=== PATIENT | male | born 1965 | race Caucasian/White ===

== ENCOUNTER 2016-09-17 14:26 | Inpatient (IN) | payer OTHER ==
[2016-09-17 17:08] VITALS: BMI 34.1
--- NOTE | 2016-09-17 18:45 | HP ---
CIWA Score - CIWA Score Nausea/Vomitin-Mild Nausea/No Vomiting Muscle Tremors: 5 Anxiety: 4-Mod. Anxious/Guarded Agitation: 4-Moderately Restless Paroxysmal Sweats: 2 Orientation: 3-Disoriented Date>2 days Tacttile Disturbances: 0-None Auditory Disturbances: 0-None Visual Disturbances: 0-None Headache: 2-Mild CIWA-Ar Total Score: 21 Admission ROS BHS - HPI Chief Complaint: [facility] [phone] Allergies/Adverse Reactions: Allergies Allergy/AdvReac Type Severity Reaction Status Date / Time No Known Allergies Allergy Verified 09/17/16 17:16 History of Present Illness: 50 years old male with long history of alcohol dependence, denies medical issue has anxiety is admitted to detox Exam Limitations: No Limitations - Ebola screening Have you traveled outside of the country in the last 21 days: No Have you had contact with anyone from an Ebola affected area: No Have you been sick,other than usual withdrawal symptoms: No Do you have a fever: No - Review of Systems Constitutional: Chills, Changes in sleep, Weight Stable EENT: reports: Other (eye glasses) Respiratory: reports: SOB with Exertion, Productive cough Cardiac: reports: Palpitations GI: reports: Nausea, Poor Fluid Intake, Indigestion, Abdominal cramping : reports: No Symptoms Reported Musculoskeletal: reports: No Symptoms Reported Integumentary: reports: No Symptoms Reported Neuro: reports: Seizure (2014 no treatment), Tremors Endocrine: reports: No Symptoms Reported Hematology: reports: No Symptoms Reported Psychiatric: reports: Judgement Intact, Anxious Other Systems: Reviewed and Negative Patient History - Patient Medical History Hx Anemia: No Hx Asthma: No Hx Chronic Obstructive Pulmonary Disease (COPD): No Hx Cancer: No Hx Cardiac Disorders: No Hx Congestive Heart Failure: No Hx Hypertension: No Hx Hypercholesterolemia: No Hx Pacemaker: No HX Cerebrovascular Accident: No Hx Seizures: Yes (LAST 3 DAYS AGO) Hx Dementia: No Hx Diabetes: No Hx Gastrointestinal Disorders: No Hx Liver Disease: No Hx Genitourinary Disorders: No Hx Sexually Transmitted Disorders: No Hx Renal Disease (ESRD): No Hx Thyroid Disease: No Hx Human Immunodeficiency Virus (HIV): No Hx Hepatitis C: No Hx Depression: No Hx Suicide Attempt: No Hx Bipolar Disorder: No Hx Schizophrenia: Yes - Patient Surgical History Past Surgical History: Yes Hx Neurologic Surgery: No Hx Cataract Extraction: No Hx Cardiac Surgery: No Hx Lung Surgery: No Hx Breast Surgery: No Hx Breast Biopsy: No Hx Abdominal Surgery: No Hx Appendectomy: Yes (20 YEARS AGO) Hx Cholecystectomy: No Hx Genitourinary Surgery: No Hx Orthopedic Surgery: No Anesthesia Reaction: No - PPD History Previous Implant?: Yes Documented Results: Negative w/proof Implanted On Prior [facility] Admission?: Yes Date: 10/23/15 PPD to be Administered?: No - Smoking Cessation Smoking history: Never smoked Have you smoked in the past 12 months: No Hx Chewing Tobacco Use: No Initiated information on smoking cessation: No - Substance & Tx. History Hx Alcohol Use: Yes Hx Substance Use: Yes Substance Use Type: Alcohol, Tranquilizers Hx Substance Use Treatment: Yes - Substances Abused Alcohol Route: Oral Frequency: Daily Amount used: LIQUOR- 3 PINTS, BEER- 3 SIX PACKS Age of first use: 16 Date of Last Use: 09/17/16 Benzodiazepine (Klonopin) Route: Oral Frequency: 3-6 times per week Amount used: 2 mg Age of first use: 49 Date of Last Use: 09/15/16 Family Disease History - Family Disease History Family Disease History: Heart Disease: Father, Mother Admission Physical Exam BHS - Vital Signs Vital Signs: Vital Signs - 24 hr 09/17/16 17:05 Temperature 97.4 F L Pulse Rate 111 H Respiratory 20 Rate Blood Pressure 144/86 - Physical General Appearance: Yes: Appropriately Dressed, Mild Distress, Alcohol on Breath , Obese, Tremorous, Irritable, Sweating, Anxious HEENTM: Yes: Hearing grossly Normal, Normal ENT Inspection, Normocephalic, Normal Voice Respiratory: Yes: Chest Non-Tender, Lungs Clear, Normal Breath Sounds, No Respiratory Distress, No Accessory Muscle Use Neck: Yes: Supple, Trachea in good position Breast: Yes: Breasts Symetrical Cardiology: Yes: Regular Rhythm, Regular Rate, S1, S2 Abdominal: Yes: Non Tender, Soft Genitourinary: Yes: Within Normal Limits Back: Yes: Normal Inspection Musculoskeletal: Yes: full range of Motion, Gait Steady Extremities: Yes: Normal Inspection, Normal Range of Motion, Non-Tender, Tremors Neurological: Yes: Alert, Motor Strength 5/5, Normal Response, Depressed Affect Integumentary: Yes: Warm, Moist Lymphatic: Yes: Within Normal Limits - Diagnostic (1) Alcohol dependence with uncomplicated withdrawal Current Visit: Yes Status: Acute (2) Hypertension Current Visit: Yes Status: Acute Qualifiers: Hypertension type: essential hypertension Qualified Code(s): I10 - Essential (primary) hypertension Comment: ALCOHOL WITHDRAWAL RELATED HYPERTENSION (3) Schizophrenia Current Visit: Yes Status: Suspected Qualifiers: Schizophrenia type: disorganized schizophrenia Qualified Code(s): F20.1 - Disorganized schizophrenia (4) GERD (gastroesophageal reflux disease) Current Visit: Yes Status: Acute Qualifiers: Esophagitis presence: without esophagitis Qualified Code(s): K21.9 - Gastro-esophageal reflux disease without esophagitis (5) Seizure disorder Current Visit: Yes Status: Chronic Comment: alcohol withdrawal related seizure no treatment Cleared for Admission S - Detox or Rehab [facility] Level of Care: Medically Managed Detox Regimen/Protocol: Librium [facility] Breath Alcohol Content Breath Alcohol Content: 0.264 Urine Drug Screen - Results Drug Screen Negative: No Urine Drug Screen Results: BZO-Benzodiazepines, TCA-Tricyclic Antidepress
[2016-09-17] MEDS ORDERED: chlordiazePOXIDE HCL 25 MG CAPSULE PO ONE (19:02)
[2016-09-17] MEDS ORDERED: MENTHOL/PHENOL 1 EACH UD MM PRN (19:02)
[2016-09-17] MEDS ORDERED: MAGNESIUM CITRATE 300 ML BOTTLE PO PRN (19:02)
[2016-09-17] MEDS ORDERED: diphenhydrAMINE HCL 50 MG CAPSULE PO PRN (19:02)
[2016-09-17] MEDS ORDERED: guaiFENesin/D-METHORPHAN HB 10 ML UNIT-DOSE CUPS PO PRN (19:02)
[2016-09-17] MEDS ORDERED: ACETAMINOPHEN 325 MG TABLET (FP) PO PRN (19:02)
[2016-09-17] MEDS ORDERED: MAG HYDROX/AL HYDROX/SIMETH 30 ML UNIT-DOSE CUP PO PRN (19:02)
[2016-09-17] MEDS ORDERED: hydrOXYzine PAMOATE 50 MG CAPSULE (FP) PO PRN (19:02)
[2016-09-17] MEDS ORDERED: MAGNESIUM HYDROX 2400MG/30ML ORAL SUSPENSION 30 ML CUP PO PRN (19:02)
[2016-09-17] MEDS ORDERED: LOPERAMIDE HCL 2 MG CAPSULE PO PRN (19:02)
[2016-09-17] MEDS ORDERED: P-EPHED 60MG/TRIPROLIDI 2.5MG TABLET PO PRN (19:02)
[2016-09-17] MEDS ORDERED: ONDANSETRON *ODT* 4 MG TABLET SL PRN (19:04)
[2016-09-17] MEDS ORDERED: cloNIDine HCL 0.1 MG TABLET PO PRN (19:05)
[2016-09-17 20:40] LABS: URINE APPEARANCE CLEAR; URINE BILIRUBIN NEGATIVE (NEGATIVE); URINE BLOOD NEGATIVE (NEGATIVE); URINE COLOR COLORLESS; URINE GLUCOSE (UA) NEGATIVE (NEGATIVE); URINE KETONE NEGATIVE (NEGATIVE); URINE LEUK ESTERASE NEGATIVE (NEGATIVE); URINE NITRITE NEGATIVE (NEGATIVE); URINE PROTEIN NEGATIVE (NEGATIVE); URINE UROBILINOGEN NEGATIVE E.U./dl (0.2-1.0)
[2016-09-17] MEDS ORDERED: THIAMINE HCL 100 MG TABLET (FP) PO SCH (22:00)
[2016-09-17] MEDS ORDERED: RANITIDINE HCL 150 MG TABLET (FP) PO SCH (22:00)
[2016-09-17] MEDS: chlordiazePOXIDE HCL 25 MG CAPSULE PO SCH (23:04)
[2016-09-18] MEDS: chlordiazePOXIDE HCL 25 MG CAPSULE PO PRN ×2 (01:58→06:56)
[2016-09-18] MEDS: chlordiazePOXIDE HCL 25 MG CAPSULE PO SCH (04:56)
[2016-09-18] MEDS ORDERED: chlordiazePOXIDE HCL 25 MG CAPSULE PO ONE (08:26)
[2016-09-18 09:19] LABS: ALBUMIN 3.6 g/dl (3.4-5.0); ANION GAP 12 (8-16); CO2 27 mmol/L (21-32); GLUCOSE,RANDOM 92 mg/dL (74-106)
[2016-09-18 09:23] LABS: ALK PHOS 102 U/L (45-117); BILIRUBIN,TOTAL 0.5 mg/dL (0.2-1.0); CREATININE 0.8 mg/dL (0.7-1.3); SGOT/AST 35 U/L (15-37); SGPT/ALT 34 U/L (12-78); TOT PROT 7.6 g/dl (6.4-8.2)
[2016-09-18 09:24] LABS: MCH 31.9 pg (25.7-33.7); MCHC 33.9 g/dl (32.0-35.9); MEAN PLT VOLUME 6.9 fl (7.5-11.1); PLATELET COUNT 324 K/MM3 (134-434); RDW 13.3 % (11.9-15.9); WHITE BLOOD COUNT 7.3 K/mm3 (4.0-10.0)
--- NOTE | 2016-09-18 09:42 | PN ---
S CIWA - CIWA Score Nausea/Vomitin Muscle Tremors: 3 Anxiety: 2 Agitation: 3 Paroxysmal Sweats: 1-Minimal Palms Moist Orientation: 0-Oriented Tacttile Disturbances: 1-Very Mild Itch/Numbness Auditory Disturbances: 1-Very Mild Visual Disturbances: 1-Very Mild Sensitivity Headache: 2-Mild CIWA-Ar Total Score: 17 BHS Progress Note (SOAP) Subjective: ALERT,IRRITABLE,ANXIOUS,INTERRUPTED SLEEP,TREMOR Objective: 09/18/16 09:40 Vital Signs Temperature 98.2 F 09/18/16 06:00 Pulse Rate 96 H 09/18/16 06:30 Respiratory Rate 18 09/18/16 06:30 Blood Pressure 132/80 09/18/16 06:00 O2 Sat by Pulse Oximetry (%) 09/18/16 09:41 EKG SINUS TACHYCARDIA 09/18/16 09:42 Laboratory Last Values WBC 7.3 K/mm3 (4.0-10.0) D 09/18/16 07:45 RBC 4.51 M/mm3 (4.00-5.60) 09/18/16 07:45 Hgb 14.4 GM/dL (11.7-16.9) 09/18/16 07:45 Hct 42.4 % (35.4-49) 09/18/16 07:45 MCV 94.0 fl (80-96) 09/18/16 07:45 MCHC 33.9 g/dl (32.0-35.9) 09/18/16 07:45 RDW 13.3 % (11.9-15.9) 09/18/16 07:45 Plt Count 324 K/MM3 (134-434) D 09/18/16 07:45 MPV 6.9 fl (7.5-11.1) L 09/18/16 07:45 Sodium 139 mmol/L (136-145) 09/18/16 07:45 Potassium 4.4 mmol/L (3.5-5.1) 09/18/16 07:45 Chloride 100 mmol/L (98-107) 09/18/16 07:45 Carbon Dioxide 27 mmol/L (21-32) D 09/18/16 07:45 Anion Gap 12 (8-16) 09/18/16 07:45 BUN 12 mg/dL (7-18) 09/18/16 07:45 Creatinine 0.8 mg/dL (0.7-1.3) D 09/18/16 07:45 Creat Clearance w eGFR > 60 (>60) 09/18/16 07:45 Random Glucose 92 mg/dL (74-106) D 09/18/16 07:45 Calcium 9.0 mg/dL (8.5-10.1) 09/18/16 07:45 Total Bilirubin 0.5 mg/dL (0.2-1.0) D 09/18/16 07:45 AST 35 U/L (15-37) 09/18/16 07:45 ALT 34 U/L (12-78) D 09/18/16 07:45 Alkaline Phosphatase 102 U/L (45-117) 09/18/16 07:45 Total Protein 7.6 g/dl (6.4-8.2) 09/18/16 07:45 Albumin 3.6 g/dl (3.4-5.0) 09/18/16 07:45 Urine Color Colorless 09/17/16 20:00 Urine Appearance Clear 09/17/16 20:00 Urine pH 7.0 (5.0-8.0) D 09/17/16 20:00 Ur Specific Gill 1.002 (1.001-1.035) 09/17/16 20:00 Urine Protein Negative (NEGATIVE) 09/17/16 20:00 Urine Glucose (UA) Negative (NEGATIVE) 09/17/16 20:00 Urine Ketones Negative (NEGATIVE) 09/17/16 20:00 Urine Blood Negative (NEGATIVE) 09/17/16 20:00 Urine Nitrite Negative (NEGATIVE) 09/17/16 20:00 Urine Bilirubin Negative (NEGATIVE) 09/17/16 20:00 Urine Urobilinogen Negative E.U./dl (0.2-1.0) 09/17/16 20:00 Ur Leukocyte Esterase Negative (NEGATIVE) 09/17/16 20:00 Assessment: 09/18/16 09:41 WITHDRAWAL SYMPTOM 09/18/16 09:42 Plan: CONTINUE DETOX
--- NOTE | 2016-09-18 09:44 | PN ---
[facility] Progress Note Note: PATIENT DIS NOT WANT TO COMPLETE TREATMENT,SINGED RELEASE AMA,STATED HE IS NOT READY TO CONTINUE DETOX,SEEN BY COUNSELOR
--- NOTE | 2016-09-18 09:49 | DS ---
[facility] Detox Discharge Summary Admission Date: 09/17/16 Discharge Date: 09/18/16 - History Present History: Alcohol Dependence Additional Comments: PATIENT DID NOT WANT TO COMPLETE TREATMENT,SIGNED RELEASE AMA,SEEN BY COUNSELOR Pertinent Past History: HYPERTENSION GERD SCHIZOPHRENIA SEIZURE DISORDER - Physical Exam Results Vital Signs: Vital Signs Temperature 98.2 F 09/18/16 06:00 Pulse Rate 96 H 09/18/16 06:30 Respiratory Rate 18 09/18/16 06:30 Blood Pressure 132/80 09/18/16 06:00 O2 Sat by Pulse Oximetry (%) Pertinent Admission Physical Exam Findings: WITHDRAWAL SYMPTOM - Medication Discharge Medications: Ambulatory Orders NK [No Known Home Medication] 10/21/15 - Diagnosis (1) Alcohol dependence with uncomplicated withdrawal Current Visit: Yes Status: Acute (2) GERD (gastroesophageal reflux disease) Current Visit: Yes Status: Acute Qualifiers: Esophagitis presence: without esophagitis Qualified Code(s): K21.9 - Gastro-esophageal reflux disease without esophagitis (3) Hypertension Current Visit: Yes Status: Acute Qualifiers: Hypertension type: essential hypertension Qualified Code(s): I10 - Essential (primary) hypertension (4) Seizure disorder Current Visit: Yes Status: Chronic (5) Schizophrenia Current Visit: Yes Status: Suspected Qualifiers: Schizophrenia type: disorganized schizophrenia Qualified Code(s): 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
[2016-09-18] MEDS ORDERED: PRENATAL VITAMINS W/ FOLIC ACID TABLET (FP) PO SCH (10:00)
[2016-09-18 11:28] VITALS: BP 144/60; PULSE 101; TEMP 98
[2016-09-18] MEDS ORDERED: chlordiazePOXIDE HCL 25 MG CAPSULE PO SCH (23:00)
[2016-09-19] MEDS ORDERED: chlordiazePOXIDE 5 MG CAPSULE PO SCH (23:00)
[2016-09-20] MEDS ORDERED: chlordiazePOXIDE HCL 10 MG CAPSULE PO SCH (23:00)
--- NOTE | 2016-09-21 14:08 | EKG ---
Test Reason : Blood Pressure : / mmHG Vent. Rate : 101 BPM Atrial Rate : 101 BPM P-R Int : 156 ms QRS Dur : 094 ms QT Int : 338 ms P-R-T Axes : 047 006 022 degrees QTc Int : 438 ms SINUS TACHYCARDIA OTHERWISE NORMAL ECG NO PREVIOUS ECGS AVAILABLE Confirmed by BAN WRIGHT MD ([id number]) on 09/21/2016 2:08:22 PM Referred By: Confirmed By:BAN WRIGHT MD
== END 2016-09-18 09:50 | disposition left against medical advice (07) | DRG 770 ==
LOC: YASAS 14:26 → Y6N 18:21
PROVIDERS: ADMIT Internal Medicine Addiction Medicine; ATTEND Internal Medicine Addiction Medicine
PROC: HZ2ZZZZ Detoxification Services for Substance Abuse Treatment (ICD-10-PCS; principal; 2016-09-18)
DX: F10.230 Alcohol dependence with withdrawal, uncomplicated (principal); F17.210 Nicotine dependence, cigarettes, uncomplicated; F13.10 Sedative, hypnotic or anxiolytic abuse, uncomplicated; F19.24 Other psychoactive substance dependence with psychoactive substance-induced mood disorder; F10.280 Alcohol dependence with alcohol-induced anxiety disorder; F10.282 Alcohol dependence with alcohol-induced sleep disorder; F20.1 Disorganized schizophrenia; G40.909 Epilepsy, unspecified, not intractable, without status epilepticus; J45.32 Mild persistent asthma with status asthmaticus; I10 Essential (primary) hypertension; K21.9 Gastro-esophageal reflux disease without esophagitis
CPT/HCPCS: 36415; 80053; 81003; 85027; 86593; 93005; 93010